=== PATIENT | female | born 1945 | race Caucasian/White ===

== ENCOUNTER 2016-07-09 07:03 | Day surgery (SDC) | payer MEDICARE ==
[~2016-07-09] VITALS: Ht 165.1 cm; Wt 69.5 kg
[~2016-07-09 07:03] MED LIST: AMITRIPTYLINE H50 MG PO; ASPIRIN E.C. 8181 MG PO; CYMBALTA60 MG PO; DETROL LA4 PO; DEXILANT60 MG PO; EEMT HS PO; IMIPRAMINE HCL25 MG PO; JANUVIA50 MG PO; LANTUS100 U/ML SC; LIPITOR20 MG PO; LISINOPRIL20 MG PO; MELOXICAM15 MG PO; METOPROLOL TART50 MG PO; NITROGLYCERIN0.4 MG SL; NOVOFINE PO; OCUVITE1 TA1 PO; OMEPRAZOLE40 MG PO; PHENTERMINE15 MG; PRINIVIL5 MG PO; TOVIAZ8 MG PO; ULTRAM 50MG TAB50 MG PO; VICTOZA6 MG/ML SC; VITAMIN D50000 I1 PO; Victoza SQ; ZETIA 10MG TAB10 MG PO
[2016-07-09] MEDS ORDERED: TOFRANIL 25MG T25 MG PO (07:39)
[2016-07-09] MEDS ORDERED: ANTIVERT 25MG25 MG PO (07:40)
[2016-07-09] MEDS ORDERED: UROCIT-K 5540 MG/TAB PO (07:41)
[2016-07-09 07:42] VITALS: BP 130/67; PULSE 88; TEMP 98.1
[2016-07-09] MEDS ORDERED: [UNRECOGNIZED DRUG - OTHER] (07:43)
[2016-07-09] MEDS ORDERED: [UNRECOGNIZED DRUG - OTHER] PO (07:43)
[2016-07-09] MEDS ORDERED: THE MEDICINE S200 M2 PO (07:45)
[2016-07-09] MEDS ORDERED: OMEGA-31 SGL PO (07:46)
[2016-07-09 09:00] VITALS: BP 124/70; PULSE 89; TEMP 97.6
[2016-07-09 09:15] VITALS: BP 115/78; PULSE 76
[2016-07-09 09:30] VITALS: BP 110/70; PULSE 70
[2016-07-09 09:32] VITALS: BP 97/56; PULSE 82
== END 2016-07-09 09:45 | disposition home or self-care (01) ==
LOC: SDCO 07:03
DX: Z12.11 Encounter for screening for malignant neoplasm of colon (principal); D12.5 Benign neoplasm of sigmoid colon; K21.9 Gastro-esophageal reflux disease without esophagitis; E11.9 Type 2 diabetes mellitus without complications; K59.00 Constipation, unspecified; I10 Essential (primary) hypertension; E78.00 Pure hypercholesterolemia, unspecified; Z86.010 Personal history of colon polyps; Z87.19 Personal history of other diseases of the digestive system; Z79.899 Other long term (current) drug therapy
CPT/HCPCS: OP; J2250; J2405; J3010; J7030

== ENCOUNTER → 2018-05-11 | Outpatient (CLI) | payer MEDICARE ==
[~2018-05-11] MED LIST changes: +ANTIVERT 25MG25 MG PO; +OMEGA-31 SGL PO; +THE MEDICINE S200 M2 PO; +TOFRANIL 25MG T25 MG PO; +UROCIT-K 5540 MG/TAB PO; +[UNRECOGNIZED DRUG - OTHER]; +[UNRECOGNIZED DRUG - OTHER] PO
== END ==
LOC: COL.RAD 14:10
DX: M51.17 Intervertebral disc disorders with radiculopathy, lumbosacral region (principal); M47.816 Spondylosis without myelopathy or radiculopathy, lumbar region; M48.061 Spinal stenosis, lumbar region without neurogenic claudication; M99.73 Connective tissue and disc stenosis of intervertebral foramina of lumbar region
CPT/HCPCS: A9585

== ENCOUNTER → 2019-07-18 | Outpatient (CLI) | payer MEDICARE | LOC: MHCPAIN 08:45 | DX: M47.817 Spondylosis without myelopathy or radiculopathy, lumbosacral region (principal); M96.1 Postlaminectomy syndrome, not elsewhere classified; E11.9 Type 2 diabetes mellitus without complications; Z79.4 Long term (current) use of insulin | CPT/HCPCS: G0463 ==

== ENCOUNTER → 2019-07-26 | Outpatient (CLI) | payer MEDICARE | LOC: MHCPAIN 09:34 | DX: G89.29 Other chronic pain (principal) | CPT/HCPCS: G0260; J1040; Q9967 ==

== ENCOUNTER → 2019-08-08 | Outpatient (CLI) | payer MEDICARE | LOC: COL.RAD 11:06 | DX: M47.816 Spondylosis without myelopathy or radiculopathy, lumbar region (principal); S22.080A Wedge compression fracture of T11-T12 vertebra, initial encounter for closed fracture; I70.0 Atherosclerosis of aorta ==

== ENCOUNTER → 2019-08-08 | Outpatient (CLI) | payer MEDICARE | LOC: MHCPAIN 10:21 | DX: M53.3 Sacrococcygeal disorders, not elsewhere classified (principal); M96.1 Postlaminectomy syndrome, not elsewhere classified; M47.816 Spondylosis without myelopathy or radiculopathy, lumbar region; M43.16 Spondylolisthesis, lumbar region; E11.9 Type 2 diabetes mellitus without complications; Z79.4 Long term (current) use of insulin | CPT/HCPCS: G0463 ==

== ENCOUNTER → 2019-08-16 | Outpatient (CLI) | payer MEDICARE | LOC: MHCPAIN 10:33 | DX: M43.16 Spondylolisthesis, lumbar region (principal); M54.5 Low back pain | CPT/HCPCS: J1040; Q9967 ==

== ENCOUNTER → 2019-08-22 | Outpatient (CLI) | payer MEDICARE | LOC: MHCPAIN 09:54 | DX: M47.26 Other spondylosis with radiculopathy, lumbar region (principal); M96.1 Postlaminectomy syndrome, not elsewhere classified; E11.9 Type 2 diabetes mellitus without complications; Z79.4 Long term (current) use of insulin | CPT/HCPCS: G0463 ==

== ENCOUNTER → 2019-11-28 | Outpatient (CLI) | payer MEDICARE | LOC: MHCPAIN 10:30 | DX: M47.817 Spondylosis without myelopathy or radiculopathy, lumbosacral region (principal); M54.5 Low back pain; M53.3 Sacrococcygeal disorders, not elsewhere classified; M96.1 Postlaminectomy syndrome, not elsewhere classified; M54.16 Radiculopathy, lumbar region; G89.29 Other chronic pain | CPT/HCPCS: G0463 ==

== ENCOUNTER → 2019-12-06 | Outpatient (CLI) | payer MEDICARE | LOC: MHCPAIN 13:43 | DX: M47.817 Spondylosis without myelopathy or radiculopathy, lumbosacral region (principal); M54.16 Radiculopathy, lumbar region; M54.5 Low back pain | CPT/HCPCS: J1100; Q9967 ==

== ENCOUNTER → 2019-12-18 | Outpatient (CLI) | payer MEDICARE | LOC: MHCPAIN 10:04 | DX: M47.817 Spondylosis without myelopathy or radiculopathy, lumbosacral region (principal); M54.5 Low back pain; M96.1 Postlaminectomy syndrome, not elsewhere classified; M53.3 Sacrococcygeal disorders, not elsewhere classified; M54.16 Radiculopathy, lumbar region | CPT/HCPCS: G0463 ==

== ENCOUNTER → 2020-03-03 | Outpatient (CLI) | payer MEDICARE | LOC: MHCPAIN 09:58 | DX: M47.817 Spondylosis without myelopathy or radiculopathy, lumbosacral region (principal); M54.5 Low back pain; M53.3 Sacrococcygeal disorders, not elsewhere classified; M96.1 Postlaminectomy syndrome, not elsewhere classified; G89.29 Other chronic pain | CPT/HCPCS: G0463 ==

== ENCOUNTER → 2020-03-13 | Outpatient (CLI) | payer MEDICARE | LOC: MHCPAIN 12:43 | DX: M47.817 Spondylosis without myelopathy or radiculopathy, lumbosacral region (principal); M54.5 Low back pain; M43.16 Spondylolisthesis, lumbar region ==

== ENCOUNTER → 2020-03-19 | Outpatient (CLI) | payer MEDICARE | LOC: MHCPAIN 10:46 | DX: M47.817 Spondylosis without myelopathy or radiculopathy, lumbosacral region (principal); M96.1 Postlaminectomy syndrome, not elsewhere classified; M53.3 Sacrococcygeal disorders, not elsewhere classified; G89.29 Other chronic pain | CPT/HCPCS: G0463 ==

== ENCOUNTER → 2020-03-27 | Outpatient (CLI) | payer MEDICARE | LOC: MHCPAIN 07:52 | DX: M47.817 Spondylosis without myelopathy or radiculopathy, lumbosacral region (principal); M54.5 Low back pain; M43.16 Spondylolisthesis, lumbar region ==

== ENCOUNTER → 2020-04-10 | Outpatient (CLI) | payer MEDICARE | LOC: MHCPAIN 07:53 | DX: M47.817 Spondylosis without myelopathy or radiculopathy, lumbosacral region (principal); G89.29 Other chronic pain; M54.5 Low back pain | CPT/HCPCS: G0463; J2250; J3010 ==

== ENCOUNTER → 2020-04-17 | Outpatient (CLI) | payer MEDICARE | LOC: MHCPAIN 08:05 | DX: M47.817 Spondylosis without myelopathy or radiculopathy, lumbosacral region (principal); M54.5 Low back pain | CPT/HCPCS: J2250; J3010 ==

== ENCOUNTER → 2020-06-25 | Outpatient (CLI) | payer MEDICARE | LOC: MHCPAIN 09:57 | DX: M47.817 Spondylosis without myelopathy or radiculopathy, lumbosacral region (principal); M54.5 Low back pain; M53.3 Sacrococcygeal disorders, not elsewhere classified; M96.1 Postlaminectomy syndrome, not elsewhere classified; E11.9 Type 2 diabetes mellitus without complications; Z79.4 Long term (current) use of insulin | CPT/HCPCS: G0463 ==

== ENCOUNTER → 2020-07-29 | Outpatient (CLI) | payer MEDICARE | LOC: MHCPAIN 09:01 | DX: M47.817 Spondylosis without myelopathy or radiculopathy, lumbosacral region (principal); M54.5 Low back pain; M96.1 Postlaminectomy syndrome, not elsewhere classified; M53.3 Sacrococcygeal disorders, not elsewhere classified; E11.9 Type 2 diabetes mellitus without complications; Z79.4 Long term (current) use of insulin | CPT/HCPCS: G0463 ==

== ENCOUNTER → 2020-09-01 | Outpatient (CLI) | payer MEDICARE, OTHER | LOC: MHCPAIN 09:31 | DX: M47.817 Spondylosis without myelopathy or radiculopathy, lumbosacral region (principal); M53.3 Sacrococcygeal disorders, not elsewhere classified; G89.29 Other chronic pain; M96.1 Postlaminectomy syndrome, not elsewhere classified | CPT/HCPCS: G0463 ==

== ENCOUNTER → 2020-09-08 | Outpatient (CLI) | payer MEDICARE, OTHER | LOC: MHCPAIN 11:48 | DX: M54.5 Low back pain (principal); M96.1 Postlaminectomy syndrome, not elsewhere classified; M53.3 Sacrococcygeal disorders, not elsewhere classified; M54.16 Radiculopathy, lumbar region | CPT/HCPCS: J0690; J2250; J3010 ==

== ENCOUNTER → 2020-09-15 | Outpatient (CLI) | payer MEDICARE, OTHER | LOC: MHCPAIN 10:58 | DX: M47.816 Spondylosis without myelopathy or radiculopathy, lumbar region (principal); M96.1 Postlaminectomy syndrome, not elsewhere classified; M54.5 Low back pain; G89.29 Other chronic pain | CPT/HCPCS: G0463 ==

== ENCOUNTER 2021-07-24 07:48 | Day surgery (SDC) | payer MEDICARE, OTHER ==
[~2021-07-24] VITALS: Ht 165.1 cm; Wt 67.9 kg
[2021-07-24 08:52] VITALS: BP 120/67; PULSE 107; TEMP 97.8
[2021-07-24 10:20] VITALS: BP 123/60; PULSE 83
--- NOTE | 2021-07-24 10:20 | NUR ---
pt to bay 1 via cart from endo room, pt walked to b/r first, then to chair, in room. call light in reach. pt took snack, no c/o
--- NOTE | 2021-07-24 10:34 | NUR ---
into see pt
[2021-07-24 10:35] VITALS: BP 106/54; PULSE 80
[2021-07-24 10:50] VITALS: BP 108/57; PULSE 89
--- NOTE | 2021-07-24 10:50 | NUR ---
reviewed discharge inst. with pt on moderate sedation, activity, precautuions and followup with verbal understanding. iv d'cd intact. Pt up and dressed and discharged via w/c to car at 1110
== END 2021-07-24 11:10 | disposition home or self-care (01) ==
LOC: SDCO 07:48
DX: Z12.11 Encounter for screening for malignant neoplasm of colon (principal); D3A.8 Other benign neuroendocrine tumors; K21.9 Gastro-esophageal reflux disease without esophagitis; K57.30 Diverticulosis of large intestine without perforation or abscess without bleeding; K58.9 Irritable bowel syndrome, unspecified; I10 Essential (primary) hypertension; I25.10 Atherosclerotic heart disease of native coronary artery without angina pectoris; G89.29 Other chronic pain; E78.5 Hyperlipidemia, unspecified; E11.9 Type 2 diabetes mellitus without complications; M19.90 Unspecified osteoarthritis, unspecified site; M54.9 Dorsalgia, unspecified; M81.0 Age-related osteoporosis without current pathological fracture; F41.9 Anxiety disorder, unspecified; Z86.010 Personal history of colon polyps; Z85.51 Personal history of malignant neoplasm of bladder; Z79.899 Other long term (current) drug therapy; Z79.82 Long term (current) use of aspirin; Z95.1 Presence of aortocoronary bypass graft; Z85.3 Personal history of malignant neoplasm of breast; Z90.89 Acquired absence of other organs; Z90.49 Acquired absence of other specified parts of digestive tract; Z90.710 Acquired absence of both cervix and uterus; Z79.4 Long term (current) use of insulin
CPT/HCPCS: 43239; G0105; J2704; J7120

== ENCOUNTER 2021-10-22 22:57 | Emergency (ER) | payer MEDICARE, OTHER ==
[~2021-10-22] VITALS: Ht 162.6 cm; Wt 65.5 kg
[2021-10-23 01:01] VITALS: BP 124/67; PULSE 101; TEMP 97.9
== END 2021-10-23 01:01 | disposition home or self-care (01) ==
LOC: COL.ER 22:57
DX: K94.23 Gastrostomy malfunction (principal); Z90.3 Acquired absence of stomach [part of]

== ENCOUNTER → 2023-07-06 | Outpatient (CLI) | payer MEDICARE, OTHER ==
[~2023-07-06] MED LIST changes: +AMBIEN 5MG TABLE5 MG PO; +ASPI325T6 PO; +CEFTIN 250250 MG/TAB PO; +CLARITIN 1010 MG/TAB PO; +CLARITIN-D 10 M1 T24 PO; +CYMBALTA 20MG20 MG PO; +CYMBALTA 60MG60 MG PO; -CYMBALTA60 MG PO; +HAIRSKINNAILS PO; +JARDIANCE25 PO; +K-DUR20 MEQ PO; +LIPITOR 80MG80 MG PO; -LIPITOR20 MG PO; -NITROGLYCERIN0.4 MG SL; +NITROSTAT0.4 MG/TAB SL; +PRIL40 PO; +PRILOSEC 20MG20 MG PO; -UROCIT-K 5540 MG/TAB PO; -VITAMIN D50000 I1 PO; +VITAMIND3 5000 PO
== END ==
LOC: MHCPAIN 13:53
DX: M79.18 Myalgia, other site (principal); M54.6 Pain in thoracic spine; M54.2 Cervicalgia
CPT/HCPCS: J0665; J1040

== ENCOUNTER → 2023-09-08 | Outpatient (CLI) | payer MEDICARE, OTHER ==
[~2023-09-08] MED LIST changes: +Atropine 1 MG/10 ML SYRINGE IV ONE; +ePHEDrine 50 MG/10 ML VIAL IV ONE
== END ==
LOC: MHCPAIN 09:58
DX: M47.812 Spondylosis without myelopathy or radiculopathy, cervical region (principal); M54.2 Cervicalgia
CPT/HCPCS: J0461; J0665

== ENCOUNTER → 2024-01-19 | Outpatient (CLI) | payer MEDICARE, OTHER ==
[~2024-01-19] MED LIST changes: -Atropine 1 MG/10 ML SYRINGE IV ONE; +Iohexol 300 - 10 ML VIAL ONE; +Lidocaine PF 2% (20 MG/ML) 2 ML VIAL ONE; -ePHEDrine 50 MG/10 ML VIAL IV ONE
== END ==
LOC: MHCPAIN 09:22
DX: M54.12 Radiculopathy, cervical region (principal)
CPT/HCPCS: J1100; Q9967

== ENCOUNTER 2024-02-24 13:33 | Inpatient (IN) | payer MEDICARE, OTHER ==
[~2024-02-24] VITALS: Ht 165.1 cm; Wt 60.2 kg
[~2024-02-24 13:33] MED LIST changes: -Iohexol 300 - 10 ML VIAL ONE; -Lidocaine PF 2% (20 MG/ML) 2 ML VIAL ONE
[2024-02-24 14:34] LABS: BASO # 0.1 K/mm3 (0.0-0.2); BASO % 0.5 % (0.0-2.0); EOS # 0.2 K/mm3 (0.0-0.7); EOS % 1.6 % (0.0-4.0); GRAN # 6.5 K/mm3 (1.4-6.5); GRAN % 61.6 % (42.2-75.2); HEMOGLOBIN 11.8 g/dl (12.5-16.0); LYMPH # 2.9 K/mm3 (1.2-3.4); LYMPH % 27.6 % (20.0-51.0); MEAN CELL VOLUME 91 fl (80.0-100.0); MEAN CORPUSCULAR HEMOGLOBIN 29 pg (27-31); MEAN CORPUSCULAR HGB CONC 32 g/dl (33.0-37.0); MEAN PLATELET VOLUME 9.9 fl (7.4-10.4); MONO # 0.9 K/mm3 (0.1-0.6); MONO % 8.3 % (1.7-9.3); PLATELET COUNT 273 K/mm3 (130-400); RED BLOOD COUNT 4.07 M/mm3 (4.10-5.30); REDCELL DISTRIBUTION WIDTH-CV 13.5 % (11.5-14.5)
[2024-02-24 14:35] LABS: HEMATOCRIT 36.9 % (37.0-47.0)
[2024-02-24 14:41] LABS: INR 1.1 (0.8-3.0); PROTHROMBIN TIME 12.2 SECONDS (9.7-12.8)
[2024-02-24 14:49] LABS: ALBUMIN 3.9 g/dL (3.4-4.8); BILIRUBIN,TOTAL 0.6 mg/dL (0.2-1.2); CALCIUM 9.9 mg/dL (8.4-10.2); CREATININE, serum 0.92 mg/dL (0.57-1.11); POTASSIUM 4.3 mEq/L (3.5-4.5); TOTAL PROTEIN 7.5 g/dl (6.2-8.1)
[2024-02-24] MEDS ORDERED: fentaNYL 50 MCG/ML 2 ML VIAL IV ONE (15:15)
[2024-02-24] MEDS ORDERED: Morphine 4 MG/ML VIAL IV ONE (17:30)
[2024-02-24 19:00] VITALS: BP 112/67; PULSE 100; TEMP 98.6
[2024-02-24] MEDS ORDERED: ALL DAY ALLERGY10 M3 PO (19:58)
[2024-02-24 20:00] VITALS: BP_SYST 112
[2024-02-24] MEDS ORDERED: TYLENOL 500MG500 MG PO (20:01)
[2024-02-24] MEDS ORDERED: APOAEQUORIN (20:05)
[2024-02-24] MEDS ORDERED: TOPROL XL 25MG25 MG PO (20:07)
[2024-02-24] MEDS ORDERED: PRILOSEC 20MG20 MG PO (20:11)
[2024-02-24] MEDS ORDERED: OZEMPIC0.25 MG/02 SQ (20:15)
[2024-02-24] MEDS ORDERED: Acetaminophen 325 MG TAB PO PRN ×2 (20:15→21:30)
[2024-02-24] MEDS ORDERED: oxyCODONE 5 MG TAB PO PRN ×2 (20:15→21:30)
[2024-02-24] MEDS ORDERED: dexAMETHasone 10 MG/ML VIAL ONE (21:02)
[2024-02-24] MEDS ORDERED: Lidocaine PF 2% (20 MG/ML) 5 ML VIAL ONE (21:02)
[2024-02-24] MEDS ORDERED: fentaNYL 50 MCG/ML 2 ML VIAL ONE (21:03)
[2024-02-24] MEDS ORDERED: Morphine 4 MG/ML VIAL IV PRN (21:30)
[2024-02-24] MEDS ORDERED: Naloxone 0.4 MG/ML VIAL IV PRN (21:30)
[2024-02-24] MEDS ORDERED: Docusate Sodium 100 MG CAP PO PRN (21:30)
[2024-02-24] MEDS ORDERED: Ondansetron 4 MG/2 ML VIAL IV PRN (21:30)
[2024-02-24] MEDS ORDERED: NS 1,000 ML IV SCH (21:30)
[2024-02-24] MEDS ORDERED: Polyethylene Glycol 3350 17 GM PDS PO PRN (21:30)
[2024-02-24] MEDS ORDERED: Glucagon 1 MG VIAL IM PRN (22:00)
[2024-02-24] MEDS ORDERED: Dextrose (Glucose) 15 GM (4 x 3.75 GM) Chewable TABLET PACK PO PRN (22:00)
[2024-02-24] MEDS ORDERED: Dextrose 50% Water 25 GM/50 ML SYRINGE IV PRN (22:00)
[2024-02-24 23:00] VITALS: BP 98/56; PULSE 105; TEMP 98
[2024-02-25] VITALS (11 sets, daily range): BP systolic 98–125; BP diastolic 61–73; PULSE 100–111; TEMP 98.1–99.3
[2024-02-25 06:32] LABS: GRAN # 7.5 K/mm3 (1.4-6.5); GRAN % 87.2 % (42.2-75.2); LYMPH # 0.9 K/mm3 (1.2-3.4); LYMPH % 10.1 % (20.0-51.0); MEAN CELL VOLUME 87 fl (80.0-100.0); MEAN CORPUSCULAR HGB CONC 33 g/dl (33.0-37.0); MEAN PLATELET VOLUME 10.5 fl (7.4-10.4); MONO # 0.2 K/mm3 (0.1-0.6); MONO % 2.4 % (1.7-9.3); PLATELET COUNT 222 K/mm3 (130-400); RED BLOOD COUNT 3.31 M/mm3 (4.10-5.30); REDCELL DISTRIBUTION WIDTH-CV 13.4 % (11.5-14.5)
--- NOTE | 2024-02-25 06:35 | NUR ---
Pt sleeping in bed. Call light in reach. Bed alarm on.
[2024-02-25 06:59] LABS: HEMATOCRIT 28.9 % (37.0-47.0); HEMOGLOBIN 9.5 g/dl (12.5-16.0); MEAN CORPUSCULAR HEMOGLOBIN 29 pg (27-31)
[2024-02-25 07:05] LABS: ALBUMIN 3.2 g/dL (3.4-4.8); BILIRUBIN,TOTAL 0.7 mg/dL (0.2-1.2); CALCIUM 8.8 mg/dL (8.4-10.2); CREATININE, serum 0.82 mg/dL (0.57-1.11); MAGNESIUM 1.7 mg/dL (1.6-2.6); POTASSIUM 4.4 mEq/L (3.5-4.5); TOTAL PROTEIN 6.3 g/dl (6.2-8.1)
[2024-02-25] MEDS ORDERED: Insulin Lispro (HumaLOG) SQ SCH (08:00)
--- NOTE | 2024-02-25 08:25 | NUR ---
Pt laying in bed. A&Ox4. VSS. S1S2. Clear lungs on RA. ABD flat, soft, non-tender with audible bowel sounds. Palpable pulses in all extremities. Stevens catheter in place with clear yellow urine in bag. IV in R forearm patent with NS at 75cc/hr. Pt denies pain at this time. Ice pack on L hip. No further needs. Call light in reach and bed alarm on.
[2024-02-25] MEDS ORDERED: Magnesium Sulfate 4% 50 ML IV ONE (08:45)
[2024-02-25] MEDS ORDERED: Loratadine 10 MG TAB PO SCH (09:00)
[2024-02-25] MEDS ORDERED: Omeprazole 20 MG **** subs to Pantoprazole 40 MG PO SCH (09:00)
[2024-02-25] MEDS ORDERED: DULoxetine 60 MG CAP PO SCH (09:00)
[2024-02-25 09:10] LABS: COLLECTION METHOD IN
[2024-02-25 09:39] LABS: PH 5.5 (5.0-8.5); URINE APPEARANCE CLOUDY (CLEAR/HAZY); URINE BLOOD TRACE (NEGATIVE); URINE COLOR YELLOW (YELLOW); URINE GLUCOSE NEGATIVE (NEGATIVE); URINE KETONE TRACE (NEGATIVE); URINE NITRATE POSITIVE (NEGATIVE); URINE PROTEIN(semi-quant) NEGATIVE (NEGATIVE); URINE UROBILINOGEN 0.2 E.U/dL (0.2-1.0)
--- NOTE | 2024-02-25 09:41 | NUR ---
SW met with patient to complete intake and discuss discharge planning. Patient confirmed that she resides in her home with spouse (Michoacano Clark [phone]) in [place]. Patient states that her PCP is Dr Walsh and pharmacy of choice is [facility], and she also does mail prescriptions. Patient reports that she has DPOA at her home, was encouraged to bring copies to hospital at her convenience. Patient reports that she is independent with ADLs and currently does not use any DMEs, but shared that she has access to numerous equipment from family if needed. Patient is anticipating to discharge back to her home with spouse. Discharge plan: Home (pending any further medical recommendations.
[2024-02-25 09:54] LABS: URINE BACTERIA MANY /hpf (NONE SEEN); URINE WBC 20-50 /hpf (0-2)
--- NOTE | 2024-02-25 12:01 | NUR ---
Data: Patient accepted spiritual care visit offered during Associate Professor Of Engineering rounds. Patient is [employer]ar[employer]; attends a bible study at a [facility]. Life review. joined the last few minutes of conversation. Assessment: Patient is concerned for the dog that jumped on her causing her fall. Patient desires to attend mass in person instead of watching on TV. Plan of care: Associate Professor Of Engineering provided supportive listening; provided Patient with the address and phone number and Tuesday schedule of mass at [facility]; and prayer. Chaplains will remain available as needed/requested while Patient is admitted to this hospital.
--- NOTE | 2024-02-25 15:20 | NUR ---
Pt reporting pain 7/10 in L hip. Discussed pain management plan. Pt agreeable to trying IV meds then following up with PO. Pt's BP was 125/78 prior to morphine administration. Will recheck prior to administering PO pain meds.
[2024-02-25] MEDS ORDERED: Atorvastatin 80 MG TAB PO SCH (21:00)
[2024-02-26] VITALS (9 sets, daily range): BP systolic 108–131; BP diastolic 39–74; PULSE 94–98; TEMP 98.2–99.4
[2024-02-26 06:41] LABS: MEAN CELL VOLUME 88 fl (80.0-100.0); MEAN CORPUSCULAR HGB CONC 34 g/dl (33.0-37.0); MEAN PLATELET VOLUME 10.7 fl (7.4-10.4); PLATELET COUNT 197 K/mm3 (130-400); RED BLOOD COUNT 3.04 M/mm3 (4.10-5.30); REDCELL DISTRIBUTION WIDTH-CV 13.8 % (11.5-14.5)
--- NOTE | 2024-02-26 06:57 | NUR ---
Pt sitting up in bed. Pt reports dry mouth. Offered moist sponge for mucous membranes. Pt agreeable. No further needs. Call light in reach and bed alarm on.
--- NOTE | 2024-02-26 06:59 | NUR ---
Pt sitting up in bed. Denies needs at this time. Call light in reach and bed alarm on.
[2024-02-26 07:04] LABS: ALBUMIN 3.1 g/dL (3.4-4.8); BILIRUBIN,TOTAL 0.6 mg/dL (0.2-1.2); CALCIUM 8.9 mg/dL (8.4-10.2); CREATININE, serum 0.83 mg/dL (0.57-1.11); MAGNESIUM 1.8 mg/dL (1.6-2.6); POTASSIUM 4.3 mEq/L (3.5-4.5); TOTAL PROTEIN 6.1 g/dl (6.2-8.1)
[2024-02-26 07:05] LABS: HEMATOCRIT 26.6 % (37.0-47.0); HEMOGLOBIN 8.9 g/dl (12.5-16.0); MEAN CORPUSCULAR HEMOGLOBIN 29 pg (27-31)
--- NOTE | 2024-02-26 07:36 | NUR ---
Pt sitting up in bed eating breakfast. A&Ox4. VSS. S1S2. Clear lungs on RA. ABD flat, soft, non-tender with audible bowel sounds. Palpable pulses in all extremities with fair strength. Decreased swelling in fingers compared to yesterday. Per Pt, kept L arm elevated on blankets. Pt reporing pain 6/10 in L hip. Ice pack on hip. Pt reports unable to move L arm too much with out intense pain. Pt denies n/v. Pain meds administered. IV in R forearm patent with NS at 75 cc/hr. No further needs. Pt requesting to stay supine at this time. Call light in reach and bed alarm on.
--- NOTE | 2024-02-26 08:40 | NUR ---
Pt stated her pain is begining to ease up. Rated pain 6/10. Pt refused more pain meds at this time. Pt stated she really does not want to take narcotics. Explained use of narcotics and benefits during short-term use. Pt stated understanding. No further needs. Call light in reach.
[2024-02-26 10:11] LABS: EOSINOPHIL 1 % (0-4); LYMPHOCYTE 23 % (20.0-51.0); NEUTROPHILS 67 % (42.0-75.2); PLATELET ESTIMATE NORMAL (NORMAL)
[2024-02-26] MEDS ORDERED: cefTRIAXone 1 G in Water For Injection,Sterile 10 ML IV SCH (10:30)
[2024-02-26] MEDS ORDERED: dexAMETHasone 10 MG/ML VIAL ONE (15:44)
[2024-02-26] MEDS ORDERED: Lidocaine PF 2% (20 MG/ML) 5 ML VIAL ONE (15:44)
[2024-02-26] MEDS ORDERED: fentaNYL 50 MCG/ML 2 ML VIAL ONE (15:45)
--- NOTE | 2024-02-26 16:14 | NUR ---
Pt back on floor. Pt reports no pain since block administered.
--- NOTE | 2024-02-26 16:40 | NUR ---
PCT reported small amounts of blood near block site. Cleaned Pt and applied mepilex to area.
[2024-02-27] VITALS (19 sets, daily range): BP systolic 112–152; BP diastolic 43–80; PULSE 83–106; TEMP 97.5–98.5
[2024-02-27 06:30] LABS: BASO % 0.1 % (0.0-2.0); GRAN # 8.4 K/mm3 (1.4-6.5); GRAN % 81.1 % (42.2-75.2); LYMPH # 1.2 K/mm3 (1.2-3.4); LYMPH % 11.8 % (20.0-51.0); MEAN CELL VOLUME 87 fl (80.0-100.0); MEAN CORPUSCULAR HGB CONC 33 g/dl (33.0-37.0); MEAN PLATELET VOLUME 10.5 fl (7.4-10.4); MONO # 0.7 K/mm3 (0.1-0.6); MONO % 6.6 % (1.7-9.3); PLATELET COUNT 186 K/mm3 (130-400); RED BLOOD COUNT 2.89 M/mm3 (4.10-5.30); REDCELL DISTRIBUTION WIDTH-CV 13.4 % (11.5-14.5)
[2024-02-27 06:32] LABS: ALBUMIN 2.7 g/dL (3.4-4.8); BILIRUBIN,TOTAL 0.4 mg/dL (0.2-1.2); CALCIUM 8.7 mg/dL (8.4-10.2); CREATININE, serum 0.81 mg/dL (0.57-1.11); MAGNESIUM 1.5 mg/dL (1.6-2.6); POTASSIUM 4.5 mEq/L (3.5-4.5); TOTAL PROTEIN 5.9 g/dl (6.2-8.1)
[2024-02-27 06:33] LABS: HEMATOCRIT 25.2 % (37.0-47.0); HEMOGLOBIN 8.4 g/dl (12.5-16.0); MEAN CORPUSCULAR HEMOGLOBIN 29 pg (27-31)
[2024-02-27] MEDS ORDERED: Magnesium Sulfate 4% 50 ML IV ONE (08:15)
[2024-02-27] MEDS ORDERED: LR 1,000 ML IV SCH (08:30)
--- NOTE | 2024-02-27 09:16 | NUR ---
SHIFT ASSESSMENT COMPLETE. VSS. PATIENT RESTING IN BED W/ AT BEDSIDE. MORNING MEDS GIVEN ORDERED W/ SIP OF WATER. PATIENT IS NPO STATUS FOR POSSIBLE SURGERY TODAY, PENDING CARDIOLOGY CLEARANCE. PATIENT STATES NO PAIN AT THIS TIME. PATIENT BEDREST W/ Q2 TURNS CURRENTLY ON RIGHT SIDE. LESTER IN PLACE YELLOW URINE DRAINING. TELE IN PLACE PATIENTS HR 87BPM. BED ALRAM ON AND CALL LIGHT IN REACH
--- NOTE | 2024-02-27 10:12 | NUR ---
rack worker notes pt is having surgery later today as clearance could not occur over the weekend. SW met with pt's in room as pt was being seen by Student Nurse. SW provided Medicare.gov list of SNF's for them to review and discuss, in the event she needs rehab after surgery. He verbalized understanding and was provided SW number. Discharge Plan: surgery today
[2024-02-27] MEDS ORDERED: NS 10 ML IV ONE (15:09)
[2024-02-27] MEDS ORDERED: fentaNYL 50 MCG/ML 2 ML VIAL ONE (15:09)
[2024-02-27] MEDS ORDERED: dexAMETHasone 10 MG/ML VIAL ONE (15:09)
[2024-02-27] MEDS ORDERED: Lidocaine PF 2% (20 MG/ML) 5 ML VIAL ONE (15:09)
[2024-02-27] MEDS ORDERED: fentaNYL 50 MCG/ML 1 ML SYRINGE/VIAL [PACU/SDC ONLY] IV PRN (17:00)
[2024-02-27] MEDS ORDERED: Ondansetron 4 MG/2 ML VIAL IV PRN (17:00)
[2024-02-27] MEDS ORDERED: Morphine 2 MG/1 ML VIAL [PACU/SDC ONLY] IV PRN (17:00)
[2024-02-27] MEDS ORDERED: HYDROmorphone 1 MG/1 ML SYRINGE [PACU/SDC ONLY] IV PRN (17:00)
--- NOTE | 2024-02-27 18:16 | NUR ---
PATIENT ARRIVED TO FLOOR FROM PACU AT 1725. VSS. PATIENT STATES PAIN 4/10 PAIN MEDS GIVEN DOWN IN PACU ORDERED. 3 INSICION SITES W/ GUAZE AND TEGADERM CDI. PATIENT STATES NO OTHER NEEDS AT THIS TIME. CALL LIGHT IN REACH
--- NOTE | 2024-02-27 23:02 | NUR ---
IV to right forearm infiltrated. New IV placed to right [id number] attempt by this nurse. Flushes well with good blood return. Report given to primary RN Ashleigh.
[2024-02-28] VITALS (10 sets, daily range): BP systolic 98–119; BP diastolic 59–71; PULSE 88–102; TEMP 97.6–98.5
--- NOTE | 2024-02-28 02:35 | NUR ---
PT IS LAYING IN BED. ASSESSMENT COMPLETED EARLIER, MEDICATIONS ADMINISTERED PER EMAR. NO COMPLAINTS AT THIS TIME. CALL LIGHT IS WITHIN REACH. BED IS IN LOWEST POSITION. IV BECAME INFILTRATED, NEW IV SITE WAS PLACED BY JACK FOWLER. NEW IV SITE FLUSHES EASILY WITH NO RESISTANCE. IV FLUIDS ARE CURRENTLY RUNNING.
[2024-02-28 06:21] LABS: BASO % 0.1 % (0.0-2.0); GRAN # 9.7 K/mm3 (1.4-6.5); GRAN % 76.1 % (42.2-75.2); LYMPH # 1.7 K/mm3 (1.2-3.4); LYMPH % 13.1 % (20.0-51.0); MEAN CELL VOLUME 86 fl (80.0-100.0); MEAN CORPUSCULAR HGB CONC 34 g/dl (33.0-37.0); MEAN PLATELET VOLUME 10.3 fl (7.4-10.4); MONO # 1.3 K/mm3 (0.1-0.6); MONO % 10.3 % (1.7-9.3); PLATELET COUNT 218 K/mm3 (130-400); RED BLOOD COUNT 2.73 M/mm3 (4.10-5.30); REDCELL DISTRIBUTION WIDTH-CV 13.3 % (11.5-14.5)
[2024-02-28 06:24] LABS: HEMATOCRIT 23.5 % (37.0-47.0); HEMOGLOBIN 7.9 g/dl (12.5-16.0); MEAN CORPUSCULAR HEMOGLOBIN 29 pg (27-31)
[2024-02-28 06:34] LABS: ALBUMIN 2.7 g/dL (3.4-4.8); BILIRUBIN,TOTAL 0.5 mg/dL (0.2-1.2); CALCIUM 8.6 mg/dL (8.4-10.2); CREATININE, serum 0.73 mg/dL (0.57-1.11); MAGNESIUM 1.7 mg/dL (1.6-2.6); POTASSIUM 4.5 mEq/L (3.5-4.5); TOTAL PROTEIN 5.8 g/dl (6.2-8.1)
[2024-02-28] MEDS ORDERED: Aspirin 325 MG TAB PO SCH (09:00)
--- NOTE | 2024-02-28 09:15 | NUR ---
SHIFT ASSESSMENT COMPLETE. VSS. PATIENT AWAKE IN BED WATCHING AND EATING BREAKFAST. PATIENT STATES NO PIAN TO LEFT HIP UNLESS SHE MOVES IT RATING 5/10, PAIN MED GIVEN PRIOR TO PT EVAL THIS AM. ALL MORNING MEDS GIVEN ORDERED. PATIENT HAS NO OTHER REQUEST AT THIS TIME.
--- NOTE | 2024-02-28 11:30 | NUR ---
FOLOEY CATHETER REMOVED. 9CC IN CATH BALLOON AND 100ML OUT OF URINE. PATIENT TOLERATED WELL. PATIENT REPORTS SHE STARIGHT CATHS IN THE MORNING FIRST THING AND THEN AT NIGHT BEFORE BED, BUT USES RESTOOM THROUGHOUT THE DAY NORMALLY. ADVISED PATIENT I WILL LET DR. PETE KNOW.
--- NOTE | 2024-02-28 14:31 | NUR ---
farmworker machine met with pt to discuss discharge planning. She was visibly upset and tearful. SW provided emotional support when she discussed having to sit in the chair for over 2 hours and it was painful on her bottom. Pt reports having called for help, but was told to wait for therapy. SW went on to discuss how PT/OT evaluations went. Pt reports it was difficult, but she was having a lot of pain and was tearful. JAKC Molina arrived to provide pain medication. MANUEL urged her to call to keep them aware of her needs. SW discuss SNF, IPR, and [facility] options for discharge. Pt chose [facility] SNF and [facility] [facility]. She reports concerns about the finances, despite SW providing assurance, and requested SW call daughter, Livier on pt phone. SW spoke with daughter and provided this information on what Medicare covers. Daughter verbalized understanding reports she will discuss with pt's . SW then providing re-assurance to pt that options are tenative and just to review to get ahead of discharge. She appeared more at ease and declined oncoming roman catholic visitors. SW received a call from pt's . SW provided update. He was fine with the above options and reports agreement with her needing rehab. [facility] [place], but was open to them reviewing. MANUEL then received a call from pt's daughter, Livier requesting information on IPR. SW provided this and details about scheduled 3 hours a day therapy, but promotes faster success with returning home. She was agreeable to have them review/discuss. MANUEL informed IPR Director Catherine of referral. MANUEL emailed referral to [facility] and faxed to [facility]. MANUEL left a voicemail with Virgie at [facility]. Discharge Plan: Post acute rehab
[2024-02-28] MEDS ORDERED: Acetaminophen 500 MG TAB PO PRN (14:45)
[2024-02-28] MEDS ORDERED: oxyCODONE 5 MG TAB PO ONE (14:45)
--- NOTE | 2024-02-28 16:16 | NUR ---
technicians and trades workers was informed [facility] can accept pt. SW received a missed call from pt's reporting he is in the hospital and available for an update. SW informed him that [facility] did accept, but it will be likely tomorrow when SW hear's back from the other facilities and know more when pt can discharge. He verbalized understanding. Discharge Plan: post acute rehab
--- NOTE | 2024-02-28 17:39 | NUR ---
BLADDER SCANNED PATIENT 204ML IN BLADDER NO INTERVENTION DONE AT THIS TIME.
[2024-02-29] VITALS (18 sets, daily range): BP systolic 95–137; BP diastolic 35–71; PULSE 101–126; TEMP 98.5–99.3
[2024-02-29 06:40] LABS: MEAN CELL VOLUME 87 fl (80.0-100.0); MEAN CORPUSCULAR HGB CONC 33 g/dl (33.0-37.0); MEAN PLATELET VOLUME 10.2 fl (7.4-10.4); PLATELET COUNT 227 K/mm3 (130-400); RED BLOOD COUNT 2.43 M/mm3 (4.10-5.30); REDCELL DISTRIBUTION WIDTH-CV 13.5 % (11.5-14.5)
[2024-02-29 06:47] LABS: HEMATOCRIT 21.1 % (37.0-47.0); MEAN CORPUSCULAR HEMOGLOBIN 29 pg (27-31)
--- NOTE | 2024-02-29 06:55 | NUR ---
awake resting in bed, bedside shift report received from JACK Sotelo
[2024-02-29 07:10] LABS: CALCIUM 8.1 mg/dL (8.4-10.2); CREATININE, serum 0.73 mg/dL (0.57-1.11)
[2024-02-29 08:01] LABS: BAND 2 % (0-10); EOSINOPHIL 1 % (0-4); LYMPHOCYTE 25 % (20.0-51.0); METAMYELOCYTE 1 % (0-0); NEUTROPHILS 60 % (42.0-75.2); PLATELET ESTIMATE NORMAL (NORMAL)
--- NOTE | 2024-02-29 08:45 | NUR ---
physical therapy in to work with patient, assisted her up and out of bed and into recliner, moves slow but is able to do this with encouragement, full assessment completed, see interventions for further info, c/o pain 11/20 and medicated with roxicodone 5mg po, cocyx is pink and left has a very small what appears to be a skin tear/abrasion, mepilex dressing placed to cocyx
--- NOTE | 2024-02-29 09:11 | NUR ---
MEWS score is 3, HR is 126 while patient is up and moving, telemetry on, patient is now resting in chair and HR is 107, JACK Brownhot metal charger nurse notified
--- NOTE | 2024-02-29 10:30 | NUR ---
is now resting back in bed, states 2 CNAs assisted her back to bed
--- NOTE | 2024-02-29 11:18 | NUR ---
Dr Alanis in to see patient, will plan on giving a unit of blood and then discharge to [facility]
[2024-02-29] MEDS ORDERED: CEFTIN 250250 MG/TAB PO (11:23)
[2024-02-29] MEDS ORDERED: PROTONIX 40MG T40 MG PO (11:24)
[2024-02-29] MEDS ORDERED: ROXICODONE 55 MG/TAB PO (11:26)
[2024-02-29] MEDS ORDERED: ASPIRIN E.C. 8181 MG PO (11:27)
--- NOTE | 2024-02-29 11:51 | NUR ---
MANUEL informed by attending that patient will be ready for discharge today after receiving one unit of blood. MAUNEL spoke with May at [facility] who is prepared to accept patient for admission today. MANUEL met with patient to discuss and she voiced understanding and agreement with transfer and states that her will drive her to [facility]. MANUEL was informed earlier today that [facility] is unable to accept and Dylan state they are continueing to follow. Dylan and SYL informed of patient's discharge to [facility]. MANUEL discussed Medicare IM form with patient who voiced understanding and agreement with discharge. Patient signed form, original on chart and copy to patient. MANUEL provided Doc to Doc number of [phone] to NIDIA Pa and Nurse to Nurse number of [phone] to JACK Bolaños. Discharge plan: [facility]
--- NOTE | 2024-02-29 11:52 | NUR ---
MEWS score remains 3, she is alert and oriented and denies shortness of breathor chest pain, HR is 112, Charge nurse notified
--- NOTE | 2024-02-29 12:30 | NUR ---
in bed and appears to be sleeping, resp quiet and easy
--- NOTE | 2024-02-29 13:14 | NUR ---
bedside shift report given to JACK Stearns
--- NOTE | 2024-02-29 13:41 | NUR ---
MEDICATED With roxicodone 5mg 1 tab for c/os pain 01/20, straight cath performed and 700ml clear light doreen urine returned
--- NOTE | 2024-02-29 14:32 | NUR ---
Blood transfusion started. Patient A&Ox4. VSS. IV CDI. Sitting up in the recliner. VS mo nitored. Call light within reach
--- NOTE | 2024-02-29 14:47 | NUR ---
Nurse at the bedside first 15 minutes. A&Ox4. VSS. VS monitored. IV CDI. Denies pain and discomfort. Sitting up in the recliner. No further needs expressed. Call light within reach
--- NOTE | 2024-02-29 15:02 | NUR ---
Report called to SNF
[2024-02-29 18:43] LABS: HEMATOCRIT 27.7 % (37.0-47.0); HEMOGLOBIN 9.3 g/dl (12.5-16.0)
--- NOTE | 2024-02-29 18:55 | NUR ---
UPDATE CALLED TO JACK [facility]. UPDATED ON HGB OF 9.3 AFTER 1 UNIT OF BLOOD. RN REQUESTED IVS BE LEFT IN AND WRAPED.
--- NOTE | 2024-02-29 22:52 | NUR ---
Patient assessed at this time, see shift assessment, A/Ox4, reports mininal pain to left hip, dressing clean, dry and intact, with splint to left arm, clean, dry and intact, BILL's and SCD's on, denies further needs, call light and personal items within reach, will continue to monitor.
--- NOTE | 2024-02-29 23:00 | NUR ---
Straight cath at this time using aseptic technique, tolerated the procedure, able to obtain 400ml of clear yellow urine and some unmeasured urine on the pad, denies further needs.
[2024-03-01 00:38] VITALS: BP_SYST 137
--- NOTE | 2024-03-01 02:58 | NUR ---
Repositioned patient to her right side, denies further needs, call light and personal items within reach.
[2024-03-01 03:23] VITALS: BP 129/70; PULSE 108; TEMP 98.5
[2024-03-01 04:04] VITALS: BP_SYST 129
[2024-03-01 07:42] VITALS: BP 126/72; PULSE 104; TEMP 98.9
--- NOTE | 2024-03-01 08:00 | NUR ---
Patient laying in bed, A&Ox3. VSS. IV CDI. Incision LF hip CDI. LF arm in splint. Denies pain. Call light within reach. Bed alarm on
[2024-03-01 08:30] VITALS: BP_SYST 126
--- NOTE | 2024-03-01 10:00 | NUR ---
Straight cath with sterile process. Pericare provided before and after. Iodine and lube. Patient tolerated well. Patient positioned for comfort. Call light within reach
[2024-03-01 10:16] LABS: HEMATOCRIT 26.7 % (37.0-47.0)
--- NOTE | 2024-03-01 10:39 | NUR ---
homeworker was informed pt is set to discharge to [facility] today. MANUEL provided D2D number [phone] Brumfield to hospitalist Dr. Alanis. MANUEL spoke with RN Jinny who has the nurse report number and will call report. Pt's hemiglobin is 9 and this was stated to High School Art Teacher Risa at [facility]. Discharge Plan: [facility]
--- NOTE | 2024-03-01 11:39 | NUR ---
Report called to SNF
[2024-03-01 11:41] VITALS: BP 113/68; PULSE 103; TEMP 97.9
--- NOTE | 2024-03-01 13:00 | NUR ---
Patient assisted with getting dressed and taken by wheelchair to POV to go to SNF in [place]. Nursing staff assisted with getting the patient into the vehicle. Update called to [facility]. Discharge paperwork and personal belonging with the . IVs removed, tip intact. Gauze and coban applied.
== END 2024-03-01 13:58 | disposition swing bed (61) | DRG 481 ==
LOC: COL.ER 13:33 → SURG 15:22
PROVIDERS: Emergency Medicine; Internal Medicine; Orthopaedic Surgery Sports Medicine; Physician Assistant; ADMIT Hospitalist
PROC: 0QS706Z Reposition Left Upper Femur with Intramedullary Internal Fixation Device, Open Approach (ICD-10-PCS; principal; 2024-02-27 14:30)
PROC: 30233N1 Transfusion of Nonautologous Red Blood Cells into Peripheral Vein, Percutaneous Approach (ICD-10-PCS; 2024-02-29)
DX: S72.142A Displaced intertrochanteric fracture of left femur, initial encounter for closed fracture (principal); E87.1 Hypo-osmolality and hyponatremia; S42.452A Displaced fracture of lateral condyle of left humerus, initial encounter for closed fracture; N39.0 Urinary tract infection, site not specified; I47.20 Ventricular tachycardia, unspecified; I10 Essential (primary) hypertension; Z66 Do not resuscitate; E11.9 Type 2 diabetes mellitus without complications; K21.9 Gastro-esophageal reflux disease without esophagitis; E78.5 Hyperlipidemia, unspecified; J30.9 Allergic rhinitis, unspecified; E83.42 Hypomagnesemia; F32.A Depression, unspecified; B96.1 Klebsiella pneumoniae [K. pneumoniae] as the cause of diseases classified elsewhere; W18.39XA Other fall on same level, initial encounter; D64.9 Anemia, unspecified; I25.10 Atherosclerotic heart disease of native coronary artery without angina pectoris; Z95.5 Presence of coronary angioplasty implant and graft; Z88.8 Allergy status to other drugs, medicaments and biological substances; Z79.82 Long term (current) use of aspirin; Z85.028 Personal history of other malignant neoplasm of stomach; Z85.118 Personal history of other malignant neoplasm of bronchus and lung; Y93.89 Activity, other specified; Y92.89 Other specified places as the place of occurrence of the external cause; Z79.899 Other long term (current) drug therapy; Z90.3 Acquired absence of stomach [part of]; Z92.3 Personal history of irradiation; Z23 Encounter for immunization
CPT/HCPCS: A4314; A9284; C1713; J0690; J0696; J1100; J1815; J2270; J2704; J2795; J3010; J3475; J7030; P9016